=== PATIENT | female | born 1945 | race Caucasian/White ===

== ENCOUNTER 2019-02-18 15:04 | Emergency (ER) | payer OTHER ==
[~2019-02-18] VITALS: Ht 160 cm; Wt 80.3 kg
[~2019-02-18 15:04] MED LIST: Abilify2 MG PO; BENAML10/2 PO; BUPR150T2 PO; Bactrim Ds Tab1 EACH PO; Budeprion Sr150 MG PO; CALCA500CH PO; CEFD300 PO; CITA20 PO; CYAN500 PO; QUET25 PO
[2019-02-18] MEDS ORDERED: HYDR1TAB94 PO (17:21)
== END 2019-02-18 17:35 | disposition home or self-care (01) ==
LOC: ER 15:04
DX: S89.201A Unspecified physeal fracture of upper end of right fibula, initial encounter for closed fracture (principal); S82.301A Unspecified fracture of lower end of right tibia, initial encounter for closed fracture; I10 Essential (primary) hypertension; F32.9 Major depressive disorder, single episode, unspecified; Z79.899 Other long term (current) drug therapy; W01.0XXA Fall on same level from slipping, tripping and stumbling without subsequent striking against object, initial encounter
CPT/HCPCS: 29515; 73590; 99283-25

== ENCOUNTER 2021-11-06 10:39 | Observation (INO) | payer OTHER ==
[~2021-11-06] VITALS: Ht 170.2 cm; Wt 63.5 kg
[~2021-11-06 10:39] MED LIST changes: +HYDR1TAB94 PO
[2021-11-06] MEDS ORDERED: BUPROPION XL150 M1 PO (11:08)
[2021-11-06] MEDS ORDERED: HYDCHL25 PO (11:08)
[2021-11-06] MEDS ORDERED: ALEN10 PO (11:09)
[2021-11-06] MEDS ORDERED: BENAZEPRIL HCL20 M4 PO (11:09)
[2021-11-06 11:19] LABS: Source, Urine Fem Cath
[2021-11-06 11:21] LABS: Bilirubin, Urine Neg (Neg); Blood, Urine Neg (Neg); Glucose Qualitative, Urine Neg (Neg); Ketones, Urine 2+ (Neg); Leukocyte Esterase, Urine Neg (Neg); Nitrite, Urine Neg (Neg); Protein, Urine Neg (Neg); Specific Gravity, Urine 1.015 (1.003-1.022); Urobilinogen, Urine NORM (Normal)
[2021-11-06 11:25] LABS: BASOPHILS ABSOLUTE AUTO 0.05 K/mm3 (0.00-0.23); BASOPHILS PERCENT AUTO 0 % (0-2); EOSINOPHILS ABSOLUTE AUTO 0.05 K/mm3 (0.00-0.68); EOSINOPHILS PERCENT AUTO 0 % (0-6); Hematocrit 41.4 % (33.0-51.0); Hemoglobin 12.9 g/dL (11.5-16.0); IMMATURE GRAN ABSOLUTE AUTO 0.06 K/mm3 (0.00-0.10); IMMATURE GRAN PERCENT AUTO 1 % (0-1); LYMPHOCYTES ABSOLUTE AUTO 1.48 K/mm3 (0.84-5.20); LYMPHOCYTES PERCENT AUTO 12 % (21-46); MONOCYTES ABSOLUTE AUTO 0.43 K/mm3 (0.16-1.47); MONOCYTES PERCENT AUTO 4 % (4-13); Mean Corpuscular HGB 27.7 pg (26.0-34.0); Mean Corpuscular HGB Conc 31.2 g/dL (31.5-36.5); Mean Corpuscular Volume 89 fL (80-100); Mean Platelet Volume 10.4 fL (9.1-12.4); NEUTROPHILS ABSOLUTE AUTO 9.99 K/mm3 (1.96-9.15); NEUTROPHILS PERCENT AUTO 83 % (41-73); Platelet Count 406 K/mm3 (150-400); RDW Coefficient Variation 13.7 % (11.7-14.2); RDW Standard Deviation 44.5 fL (35.1-46.3); Red Blood Cell Count 4.65 M/mm3 (3.80-5.20); White Blood Cell Count 12.06 K/mm3 (4.00-11.30)
[2021-11-06 11:28] LABS: Appearance, Urine Clear (Clear); Color, Urine Yellow (P-Yellow)
[2021-11-06 11:49] LABS: Albumin, Blood 3.2 g/dL (3.4-5.0); Albumin/Globulin Ratio 0.7 (0.8-1.8); Bilirubin, Total 0.5 mg/dL (0.1-1.0); Bun/Creatinine Ratio 20.6 (12.0-20.0); Calcium, Blood 9.2 mg/dL (8.5-10.1); Creatinine, Blood 0.68 mg/dL (0.40-1.00); Globulin, Blood 4.5 g/dL (2.2-4.0); Potassium, Blood 3.7 mmol/L (3.5-5.5); Total Protein, Blood 7.7 g/dL (6.4-8.2)
--- NOTE | 2021-11-06 14:15 | NUR ---
PT ARRIVED TO UNIT, SLIDE TRANSFER FROM [facility] TO BED. PT NOT RESPONDING TO VERBAL OR PHYSICAL MOVEMENT. PT ORIENTED TO ROOM, POSITIONED IN SUPINE. PLAN TO MEDICATE PER EMAR PRN. PT COMFORT CARE. APNEIC PERIODS NOTED.
--- NOTE | 2021-11-06 15:54 | NUR ---
Initial Pal Care visit - New referral and update on current status and concerns received from RN assuming care of pt from ER admit for comfort care. She states there seems to be some confusion among family members re: pt's condition and goals of care. Visit made to bedside. Pt is minimally responsive. Family and RN feel she responds to conversation in the room & at times, "listening". She does not respond to voice or touch. Frowning and grimacing noted periodically t/o visit with furrowed brow noted. , son and dil at bedside had many questions that were addressed, including our immediate plan of care to provide tx for comfort as primary goal. They are in agreement with this. 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 I educated them on nonverbal indicators of pain, anxiety and distress and to report to nursing if noted. Educated on hospice services and coverage per 's questions. They verbalize understanding of plan to tx s/s, watch for indicators of progression of dying process & if pt comfortable and stable, she may be able to be d/c'd home with family care and hospice support early this week. Henri and grandson had been in earlier and left as I arrived. Family educated on comfort care, spiritual care and supportive services available to them. Planned with them for PC to visit daily for s/s assessment, management and family support. They expressed appreciation for the time, information and visit. Bedside RN present for entire visit also. Discussed pain management and starting with lowest dose of Roxanol for noted pain. Pt does not normally use analgesics at home per family. They report her health has been in decline over the past three years with previous falls at home. They wondered if she'd had previous strokes or TIA's. also wondered if Pt's recent covid may have contributed to CVA. We reviewed if pt became more awake/alert that we would offer food/fluids of her choice but that currently that would not be safe with somnolence and declining LOC. Discussed very limited prognosis if pt unable to take in PO food/fluids. Family in favor of supportive care without intervening or providing artificial hydration/nutrition. Comfort care cart had already been ordered for multiple family visitors that will be in.
--- NOTE | 2021-11-06 17:16 | NUR ---
PT ARRIVED TO UNIT FROM ER, SUPINE POSITIONED, GOWN CHANGED, BREIF BED BATH, WASHED FACE, APPLIED LIP MOISTURE
--- NOTE | 2021-11-07 00:22 | NUR ---
COMFORT: PATIENT IS RESTING COMFORTABLY, UNRESPONSIVE AT THIS TIME.
--- NOTE | 2021-11-07 00:25 | NUR ---
COMFORT: PATIENT CONTINUES TO BE UNRESPONSIVE, RESPIRATIONS ARE PURSED LIPPED AT 20. 02 @ 2L VIA NC IS APPLIED FOR COMFORT.
--- NOTE | 2021-11-07 00:28 | NUR ---
COMFORT: PATIENT HAS HER EYES OPEN KILN FIRER ENTERS ROOM. CLOSES THEM WHEN SPOKEN TO AND DOES NOT RESPOND TO VOICE. NO S/S OF PAIN OR DISCOMFORT.
--- NOTE | 2021-11-07 05:27 | NUR ---
COMFORT: PATIENT SCORES A 4 ON FLACC SCALE, IVB MORPHINE 5MG IS GIVEN.
--- NOTE | 2021-11-07 05:29 | NUR ---
COMFORT: PATIENT CONTINUES TO BE NON VERVBAL BUT EYES ARE OPEN AND PATIENT REMOVED HER NC. NC IS LEFT OFF
--- NOTE | 2021-11-07 06:06 | NUR ---
SHIFT SUMMARY: PATIENT DID MUMMBLE SOME INCOHERANT WORDS TO SSIS SSRS DEVELOPER. MOVING RIGHT HAD, ABLE TO PUSH NC UP ONTO HER FOREHEAD. HAD GOOD EFFECT FROM IV MORPHINE AND IS RESTING IN BED WITH EYE'S CLOSED. RESPIRTATIONS ARE EASY AT 16. BED ALARM IS ON.
--- NOTE | 2021-11-07 09:05 | NUR ---
Comfort care visit. Pt minimally responsive to voice or touch. She appeared to try to open eyes when I said good morning but was unable to. Resp even and unlabored. No family at bedside currently. she appears very comfortable at this time. I will check back when family visiting later. Changed diet to NPO due to pt's inability to be awake enough for PO intake at this time.
--- NOTE | 2021-11-07 14:21 | NUR ---
Attempted to visit when family present. They have not been in while I came by multiple times. Will remain available to return if indicated or family requests. Pt cont to look comfortable and at peace t/o day.
--- NOTE | 2021-11-07 15:44 | NUR ---
DC HOME WRITTEN & VERBAL DC INSTRUCTIONS GIVEN TO PT WITH SON PRESENT, GOOD UNDERSTANDING VERBALIZED BY BOTH. HH HAS BEEN ORDERED AND ARRANGED FOR PT. PIV DC'D WITH CATH TIP INTACT, NO REDNESS OR SWELLING NOTED AT SITE. NEW MED SCRIPTS FAXED TO [facility] [address]. PT'S PERSONAL O2 CONCENTRATOR & O2 TUBING AVAILABLE FOR PT USE FOR TRANSPORT HOME. ALL PERSONAL BELONGINGS SENT WITH PT. PT VIA W/C TO SON'S PRIVATE VEHICLE FOR TRANSPORT HOME.
--- NOTE | 2021-11-07 17:34 | NUR ---
SHIFT SUMMARY PT HAS MUMBLED INCOHERENTLY. DOES OPEN EYES THOUGH DOES NOT MAKE EYE CONTACT. DOES NOT RESPOND TO QUESTIONS ASKED OF HER. HAS NOT HAD ANY URINE OUTPUT THIS SHIFT NOR HAS SHE HAD A BM. MEDICATED ONCE WITH MS 2MG ORDERED PER MD FOR FACIAL GRIMACING. REPOSITIONED WITH PILLOWS Q 2HRS. APPEARS TO HAVE PURPOSFUL MOVEMENT OF HER ARMS TO REACH FOR HER FACE AND HER NOSE. NO NOTED MOVEMENT OF HER LEGS. FAMILY HAS BEEN IN AND OUT VISITING HER TODAY. HER SPOUSE BROUGHT IN HER POLST AND HER ADVANCED DIRECTIVE. COPIES OF BOTH ARE ON THE CHART.
--- NOTE | 2021-11-07 21:30 | NUR ---
COMFORT: PATIENT IS RESTING QUIETLY IN BED, OPEN EYE'S TO VOICE BUT IS NON VERBAL.
--- NOTE | 2021-11-07 21:31 | NUR ---
COMFORT: NO S/S OF PAIN OR DISCOMFORT. INC. OF A LARGE AMT. OF URINE. AMARILIS CARE AND ORAL CARE COMPLETED. BED ALARM IS ON
--- NOTE | 2021-11-08 00:33 | NUR ---
COMFORT: PATIENT SCORES A 4 ON FLACC SCALE. ROXANOL 5 MG IS GIVEN.
--- NOTE | 2021-11-08 04:18 | NUR ---
COMFORT: PATIENT HAD GOOD EFFECT FROM ROXANOL AND IS RESTING QUIETLY WITH NO S/S OF PAIN OR DISCOMFORT.
--- NOTE | 2021-11-08 04:20 | NUR ---
SHIFT SUMMARY: PATIENT REQUIRED PRN ROXANOL X1. GOOD EFFECT WAS OBSERVED. PATIENT IS RESTING COMFORTABLY. OCCASSIONAL OPENS EYE'S AND MOVES LEFT HAND TO HER LEFT CHEEK OFTEN. NON VERBAL THIS SHIFT. RESPIRATIONS ARE EASY @ 18.
--- NOTE | 2021-11-08 10:10 | NUR ---
Comfort Care Visit Pt resting in bed with her eyes closed. Pt appears comfortable with no S/S of distress at this time. Pt's family at bedside. Offered active listening as spouse reports family not wanting to take Pt home as she would not want to be at home with caregivers caring for her. Continued active listening and answered questions. Palliative Care will remain available.
--- NOTE | 2021-11-08 16:05 | NUR ---
Spiritual care visit conducted. Pt is minimally responsive. Pt's spouse, Myron, is bedside. Myron talks at length about the emotional pain of the last several yrs as pt has spoken and acted poorly and out of character. 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 In several attempts to learn how Myron is coping he spoke mostly of doctors reports and facts but fianlly with tears in his eyes he describes the current medical status of the pt as, "a blessing in disguise." He states that quality of life from this point on would not be high and her refuseal to eat or drink is telling us that she is ready to go. I conduct a life review, encourage self-care for Myron and provide therapeutic listening and a calming presence. I will continue to remain available.
--- NOTE | 2021-11-08 21:26 | NUR ---
COMFORT: PATIENT IS RESTING IN BED WITH NO S/S OF PAIN OR DISCOMFORT. RESPIRATIONS ARE EASY BUT SHALLOW AT 16.
--- NOTE | 2021-11-08 21:28 | NUR ---
COMFORT: PATIENT CONTINUES TO REST COMFORTABLY. INC. OF URINE.
--- NOTE | 2021-11-09 04:34 | NUR ---
COMFORT: PATIENT CONTINUES TO REST COMFORTABLY, NO S/S OF PAIN OR DISCOMFORT.
--- NOTE | 2021-11-09 04:35 | NUR ---
COMFORT: RESPIRATIONS ARE EASY BUT SHALLOW. NO S/S OF PAIN.
--- NOTE | 2021-11-09 04:40 | NUR ---
COMFORT: PATIENT CONTINUES TO REST COMFORTABLY. RESPIRATIONS ARE EASY AND SHALLOW AT 14.
--- NOTE | 2021-11-09 05:45 | NUR ---
SHIFT SUMMARY: PATIENT SCORES A 3 ON FLACC SCALE. CRIED OUT WITH REPOSITIONING 10MG OF ROXANOL IS GIVEN
--- NOTE | 2021-11-09 10:23 | NUR ---
ATTENDS CHANGED. REPOSITIONED UP IN BED. ORAL CARE COMPLETE, LIP BALM APPLIED. FACE WASHED WITH WASHCLOTH.
--- NOTE | 2021-11-09 10:53 | NUR ---
Comfort Care Visit Pt resting in bed with her eyes opened other fernandez non responsive. Pt appears comfortable with no S/S of distress at this time. Pt's sisters and brother in law at bedside. Offered supportive conversation and answered questions. Palliative Care will remain available.
--- NOTE | 2021-11-09 14:19 | NUR ---
BED BATH WITH LINEN CHANGE AND ATTENDS CHANGED COMPLETED. REPOSITIONED IN BED. ORAL CARE DONE, LIP BALM APPLIED. PATIENT RESTING AT THIS TIME.
--- NOTE | 2021-11-09 15:09 | NUR ---
Spiritual care visit conducted. Pt's sister and her spouse are present and tells me about the family lunch that took place today. It was a larger gathering and resulted in having much laughter. I think might have been the most therapeutic event for Myron, Pt's spouse, could possibly have given the back story and the pain he has gone through. 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 Yet his heart is still aching as she approaches the end of life. I provide therapeutic listening and family responds well.
--- NOTE | 2021-11-09 16:00 | NUR ---
MEDICATED FOR PAIN. SEE EMAR. ORAL CARE WITH SPONGE, LIP BALM APPLIED. REPOSITIONED LEGS WITH HEELS FLOATED. WILL CONTINUE TO MONITOR.
--- NOTE | 2021-11-09 18:44 | NUR ---
SHIFT SUMMARY PATIENT RESTED IN BED THROUGHOUT SHIFT. Q2 HR REPOSITION AND ATTENDS CHANGED NEEDED. MEDICATED FOR RESTLESSNESS PRN. SEE EMAR. BED BATH THIS SHIFT. FAMILY ATTENTIVE AT BEDSIDE. PATIENT OPENS EYES AT TIMES, NO VERBAL RESPONSE, SOMETIMES LIFTS LEFT ARM UP TO TOUCH CHEEK. DISCHARGE PLANNING HOSPICE AT A FACILITY.
--- NOTE | 2021-11-09 18:47 | NUR ---
SHIFT SUMMARY PATIENT RESTED IN BED THROUGHOUT SHIFT. COMFORT CARE. Q2 HR REPOSITION, PERSONAL CARE, ORAL CARE, AND PAIN MEDS PRN. FAMILY AT BEDSIDE. OPENS EYES SOMETIMES, NOT VERBALLY RESPONSIVE. SOMETIMES LIFTS LEFT ARM UP TO FACE. PLANNING HOSPICE FACILITY DISCHARGE. WILL REPORT TO ARCHIVIST ECONOMIC HISTORY RN.
--- NOTE | 2021-11-10 03:51 | NUR ---
SHIFT SUMMARY COMFORT CARE PT WITH Q2 TURN. PT SLEPT MOST OF THE SHIFT. PT REMAIN NON VERBAL BUT HAS OPENED HER EYES MORE FREQUENTLY, TURNS HEAD AND LIFT ARMS INTERMITTENTLY. ORAL CARE DONE. PAIN MEDS NEEDED. NO ACUTE CHANGES. PLAN: HOSPICE FACILITY. WILL PROVIDER REPORT TO ONCOMING DAY SHIFT NURSE.
--- NOTE | 2021-11-10 14:01 | NUR ---
Comfort Care Visit Pt resting in bed with her eyes closed. Pt appears comfortable with no S/S of distress at this time. Pt's spouse at bedside. Offered active listening as spouse expresses concerns and frustration. Dr King and RN Caremanager Maria T arrive and participated in conversation. Therapeutic listening and validated concerns. Potential D/C plan discussed. Palliative Care will remain available.
--- NOTE | 2021-11-10 15:34 | NUR ---
Spiritual care visit conducted. I visit with pt's dtr, Sheila. She explains about her grief and pain and how it has come in different ways. The dementia caused one kind of loss and now the medical issues are causing another kind of loss. Sheila shares personal stories. I encourage self-care, normalize her experience and provide therapeutic listening, anticiaptory grief support and a calming presence. Sheila responds well and shows signs of being comforted. I will continue to remain available.
--- NOTE | 2021-11-10 17:43 | NUR ---
SHIFT SUMMARY PT HAS BEEN AWAKE A LOT OF THE DAY BUT DOES NOT RESPOND TO QUESTIONS OR FOLLOWS DIRECTIONS. PT HAS NOT VOIDED THIS SHIFT. PT HAS NEEDED PAIN MEDICATION MORE OFTEN THIS SHIFT AND HAD TO BE INCREASED THIS EVENING. PT IS NOW RESTING QUIETLY. FAMILY HAS BEEN IN ROOM OFF AND ON THROUGH OUT THE SHIFT AND HAS LEFT FOR THE DAY. WILL CONTINUE TO MONITOR FOR COMFORT AND REPORT TO ONCOMING RN.
--- NOTE | 2021-11-11 06:16 | NUR ---
SHIFT SUMMARY COMFORT CARE. PT RESPONDS TO VERBAL AND PAINFUL STIMULI. MEDICATED WITH ROXANOL 15MG TO 20MG THIS MORNING. PT APPEARS TO BE MORE PAINFUL THIS MORNING. PT HAS MINIMAL ATTENDS T/O SHIFT. REPOSITIONED Q2. ORAL CARE. CALL LIGHT WITHIN REACH. WILL CONTINUE TO MONITOR.
--- NOTE | 2021-11-11 08:17 | NUR ---
Pt resting in bed with her eyes closed. Pt opens her eyes to gentle verbal stimuli. Offered gentle and therapeutic touch with Pt stating "owe" when touched on the shoulder. Spoke with Primary RN Sheryl and reported Pt's pain. Cristiana reports plan to offer comfort medication. Palliative Care will remain available.
--- NOTE | 2021-11-11 09:27 | NUR ---
COMFORT CARE INITIAL ASSESSMENT PATIENT MOANING AND SAYING "OW". PO ROXANOL GIVEN LESS THAN AN HOUR AGO. ALL OTHER MEDICATIONS ORDERED IV AND PATIENT HAS NO IV. DR CALLED AND SWITCHED ATIVAN TO PO. ATIVAN CRUSHED AND GIVEN. WILL CONTINUE TO MONITOR.
--- NOTE | 2021-11-11 17:51 | NUR ---
SHIFT SUMMARY PATIENT ON COMFORT CARE. PATIENT BEGAN SHIFT MOANING AND SAYING "OW". MEDICATED FOR PAIN MULTIPLE TIMES T/O SHIFT. FAMILY AT BEDSIDE ON AND OFF T/O SHIFT. PATIENT CURRENTLY RESTING COMFORTABLE. Q2H TURNING SCHEDULE. WILL CONTINUE TO MONITOR.
--- NOTE | 2021-11-12 05:58 | NUR ---
FINAL DISCHARGE SURFACE SHIP USW SUPERVISOR AT BEDSIDE WHEN THIS RN ENTERED ROOM DURING ROUNDS. SURFACE SHIP USW SUPERVISOR SPOT CHECKED PATIENT WITH PORTABLE SPO2 MONITOR. THIS RN AND STONE PAVER AT BEDSIDE FOR PRONOUNCEMENT. TIME OF 0545. CALL PLACED TO PATIENT'S . TO COME IN TO ASSIST WITH CHOOSING HOME. CALL PLACED TO HOSPITALIST TO UPDATE WITH TIME OF . POST MORTEM CARE COMPLETED. ALL BELONGINGS GATHERED FOR PATIENT'S TO OBTAIN WHEN HE ARRIVES.
--- NOTE | 2021-11-12 08:00 | NUR ---
PT'S AT BEDSIDE. HE WILL CALL HIS CHILDREN TO SEE IF THEY WOULD LIKE TO VISIT PT. SELECTED [facility]. 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
--- NOTE | 2021-11-12 13:58 | NUR ---
STAFF FROM OUTSIDE AGENCY ARRIVED TO PERFORM ORGAN HARVESTING OF EYES.
== END 2021-11-12 05:45 ==
LOC: ER 10:39 → MEDS 10:40
PROVIDERS: Emergency Medicine; ADMIT Family Medicine
DX: I61.8 Other nontraumatic intracerebral hemorrhage (principal); I10 Essential (primary) hypertension; F32.A Depression, unspecified; F03.90 Unspecified dementia, unspecified severity, without behavioral disturbance, psychotic disturbance, mood disturbance, and anxiety; Z66 Do not resuscitate
CPT/HCPCS: 36415; 70450; 71045; 80053; 81003; 82947; 85025; 93005; 93010; 96365; 96375; 99291-25; A9270; J2270; J2405; J7050; P9612